=== PATIENT | female | born 1940 | race Caucasian/White ===

== ENCOUNTER 2017-07-12 12:47 | Day surgery (SDC) | payer MEDICARE ==
[~2017-07-12] VITALS: Ht 157.5 cm; Wt 45.9 kg
--- NOTE | ~2017-07-12 | OP ---
PATIENT NAME: JAGDISH ESCAMILLA MEDICAL RECORD: [id number] :42 LOCATION:[facility] ADMISSION DATE: SURGEON: BRAYDEN PERSAUD DO DATE OF OPERATION: 07/12/2017 PROCEDURE: Colonoscopy with polypectomy. INDICATION FOR PROCEDURE: Stool DNA-based colorectal cancer screening positive. SCOPE: [employer] video pediatric colonoscope. MEDICATIONS: Propofol 500 mg IV per anesthesia. WITHDRAWAL TIME: Greater than 30 minutes. ESTIMATED BLOOD LOSS: Minimal. COMPLICATIONS: None. FINDINGS: Informed consent was given. The patient was made comfortable with the above medication. After reaching an adequate level of sedation by slow IV push, the patient was placed on her left side. A digital rectal examination was performed and was normal. The endoscope was then advanced under direct visualization through the rectum to the cecum with visualization of the appendiceal orifice. The ileocecal valve was visualized as well. In the cecum, there were 3 separate polyps. The first was located in the appendiceal orifice itself. This measured approximately 4 mm in diameter. It was benign appearing and sessile. It was biopsied but not removed at this time due to the larger polyp that was also present in the cecum. The larger polyp was located just distal to the ileocecal valve. It measured approximately 1.3 cm in size. It was a flat multinodular polyp. A lift was attempted to see if this could be resected and snared safely. The lift was successful as the polyp did not lift, which raises suspicion for some microinvasion into the deeper tissue. A biopsy with cold forceps was taken to submit for histopathology. The third polyp in the cecum was located just around the back fold of the ileocecal valve. Retroflexion was required to visualize this polyp and remove it. A hot snare was used to remove this benign-appearing sessile polyp that measured approximately 5 mm in diameter. It was removed in one piece and completely retrieved. In the ascending colon, there was a single benign-appearing sessile polyp which measured approximately 5 mm in diameter and was removed with hot forceps in one piece and completely retrieved. In the transverse colon, there was a single polyp which was benign appearing, sessile, and measuring approximately 4 mm in diameter that was removed using hot snare in one piece and completely retrieved. There were 3 separate descending colon polyps, which ranged in size from 2-4 mm in diameter. They were all benign appearing and sessile and removed using hot forceps. There was evidence of diverticulosis of moderate severity involving descending and sigmoid colon. Retroflexion was performed in the rectum with normal-appearing rectal wall. The endoscope was withdrawn from the patient. The patient tolerated the procedure well and there were no complications. IMPRESSION: 1. Multiple polyps as described above, removed using combination of hot forceps and hot snare. There are 2 polyps that are still present within the cecum itself. The first is located in the appendiceal orifice and the other is a OPERATIVE REPORT [id number] FRANCINEJAGDISH larger flat polyp just proximal to the ileocecal valve. Biopsies were taken of both of these polyps. 2. Moderate diverticulosis of the left side of the colon. PLAN AND RECOMMENDATIONS: 1. Discharge home when recovery parameters are met. 2. Followup biopsy specimen results. 3. High-fiber diet. 4. Continue current medications. 5. Referral to Dr. Nicole for APC therapy versus resection based on results of biopsy specimens. 6. Further recall and intervention will be dependent on results with Dr. Nicole. TRANSINT:[id number] Voice Confirmation ID: [id number] DOCUMENT ID: [id number] BRAYDEN PERSAUD DO at 0842 CC: [id number] DICTATION DATE: 07/12/17 174 ENGLISH ADJUNCT FACULTY: 07/12/17 192 [facility] 07/12/17 [facility] [address] [place] [address]
[2017-07-12] MEDS ORDERED: ADVAIR 250/501 DISK INH (14:12)
[2017-07-12] MEDS ORDERED: CARTIA XT120 MG PO (14:14)
[2017-07-12] MEDS ORDERED: ZANTAC 7575 MG PO (14:14)
[2017-07-12] MEDS ORDERED: ALBUTEROL0.63 MG/3 INH (14:14)
[2017-07-12] MEDS ORDERED: BAYER CHEWABLE81 MG PO (14:15)
[2017-07-12] MEDS ORDERED: CELEXA20 MG PO (14:15)
[2017-07-12 14:22] VITALS: BP 131/71; Ht 157.5 cm; Wt 45.9 kg
[2017-07-12 14:51] LABS: BASOPHILS 0.2 % (0-2); EOSINOPHILS 0.6 % (0-7); HEMATOCRIT 39.1 % (36.0-48.0); IMMATURE GRANULOCYTES 0.2 % (0-5); LYMPHOCYTES 22.4 % (15-50); MCH 30.3 pg (26.0-34.0); MCHC 33.2 g/dL (31.0-37.0); MCV 91.1 fL (80.0-100.0); MONOCYTES 6.6 % (2-11); PLATELET COUNT 198 10x3/uL (130-400); RBC 4.29 10x6/uL (4.00-5.40); RDW 13.1 % (11.5-14.5); WBC 6.5 10x3/uL (4.8-10.8)
[2017-07-12 15:22] LABS: ANION GAP 18.4 mmol/L (8-16); CALCIUM 8.7 mg/dL (8.5-10.1); CARBON DIOXIDE 24.2 mmol/L (21.0-32.0); CREATININE - SERUM 0.9 mg/dL (0.6-1.3); POTASSIUM - SERUM 3.6 mmol/L (3.5-5.1)
== END 2017-07-12 18:50 | disposition home or self-care (01) ==
LOC: D.OPS 12:47
PROVIDERS: Anesthesiology
DX: Z12.11 Encounter for screening for malignant neoplasm of colon (principal); D12.2 Benign neoplasm of ascending colon; D12.0 Benign neoplasm of cecum; D12.4 Benign neoplasm of descending colon; D12.3 Benign neoplasm of transverse colon; J44.9 Chronic obstructive pulmonary disease, unspecified; K21.9 Gastro-esophageal reflux disease without esophagitis; Z01.812 Encounter for preprocedural laboratory examination

== ENCOUNTER 2017-09-01 07:34 | Day surgery (SDC) | payer MEDICARE ==
[~2017-09-01] VITALS: Ht 157.5 cm; Wt 47.2 kg
--- NOTE | ~2017-09-01 | OP ---
PATIENT NAME: JAGDISH ESCAMILLA MEDICAL RECORD: [id number] :42 LOCATION:[facility] ADMISSION DATE: SURGEON: OLI EPPERSON MD DATE OF OPERATION: 09/01/2017 PREOPERATIVE DIAGNOSIS: Cecal polyp. POSTOPERATIVE DIAGNOSIS: Cecal polyp with central ulceration and central induration. PROCEDURES: 1. Total colonoscopy to cecum. 2. Cecal polypectomy with epinephrine submucosal injection as well as submucosal tattooing and treatment of the polypoid base with the argon plasma engineering technical writer. The risks, possible complications, and alternatives to the procedure were explained to the patient. She elects to proceed. OPERATIVE COURSE: The patient was conveyed to the operating room electively on 09/01/2017. General anesthesia was induced by the anesthesia staff. The patient was placed in the Gar position. A digital rectal examination was performed. A colonoscope was inserted through the anus. It was easily advanced to the cecum. I was able to identify the appendiceal orifice. I carefully scrutinized the appendiceal orifice utilizing normal imaging as well as narrow band imaging and I identified no residual polyp at the appendiceal orifice. Within the cecum and across from the ileocecal valve, there was an ulcerated polypoid lesion that appeared to be 2.5 cm in greatest dimension. There was some central ulceration. I advanced the sclerotherapy needle. A submucosal injection of epinephrine was performed and this did not achieve a lift of the polyp away from the colonic wall. I biopsied essentially the entire polyp with the cold endoscopic biopsy forceps. I then treated this biopsy site with the argon plasma engineering technical writer utilizing the right colon setting in the forced mode. I then performed submucosal endoscopic tattooing proximal and distal to the polyp utilizing the sclerotherapy needle. I then withdrew the endoscope. A combination of normal imaging as well as narrow band imaging was utilized. I dragged the folds. The pullback was greater than 18-minute pullback. The endoscope was then withdrawn under direct vision. This polyp was worrisome. It was firm at the center and the biopsies from the central portion of this polyp did not pull away very easily. I am somewhat concerned that this polyp may harbor a malignancy. The patient is going to be dismissed home with Flagyl due to the possibility of a postpolypectomy syndrome. TRANSINT:[id number] Voice Confirmation ID: [id number] DOCUMENT ID: [id number] OPERATIVE REPORT [id number] FRANCINE,OLI OLIVAREZ MD at 1518 CC: CLINT REAL MD, LIZETT BOUDREAUX and BRAYDEN PERSAUD DO [id number] DICTATION DATE: 09/01/17 1233 SENIOUR INSIGHT MANAGER: 09/01/17 1258 [facility] [address] [id number]
[~2017-09-01 07:34] MED LIST: ADVAIR 250/501 DISK INH; ALBUTEROL0.63 MG/3 INH; BAYER CHEWABLE81 MG PO; CARTIA XT120 MG PO; CELEXA20 MG PO; ZANTAC 7575 MG PO
[2017-09-01 08:29] LABS: HEMATOCRIT 43.7 % (36.0-48.0); HEMOGLOBIN 14.8 g/dL (12-16); MCH 30.9 pg (26.0-34.0); MCHC 33.9 g/dL (31.0-37.0); MCV 91.2 fL (80.0-100.0); RBC 4.79 10x6/uL (4.00-5.40); RDW 13.1 % (11.5-14.5); WBC 9.2 10x3/uL (4.8-10.8)
[2017-09-01 08:41] LABS: ANION GAP 17.5 mmol/L (8-16); CALCIUM 9.2 mg/dL (8.5-10.1); POTASSIUM - SERUM 3.5 mmol/L (3.5-5.1)
[2017-09-01 09:14] VITALS: BP 144/81; Ht 157.5 cm; Wt 47.2 kg
== END 2017-09-01 14:55 | disposition home or self-care (01) ==
LOC: D.OPS 07:34 → D.PAN 11:35 → D.OPS 12:30
PROVIDERS: Anesthesiology
DX: D12.0 Benign neoplasm of cecum (principal); Z01.812 Encounter for preprocedural laboratory examination